=== PATIENT | female | born 1980 | race Caucasian/White ===

== ENCOUNTER 2021-07-08 08:47 | Emergency (ER) | payer OTHER, SELFPAY ==
--- NOTE | ~2021-07-08 | XR_ITS ---
EXAMINATION: XR chest 2V DATE: 07/08/2021 09:38 INDICATION: Chest pain with deep inspiration TECHNIQUE: PA and lateral views of the chest were obtained. COMPARISON: None FINDINGS: The lungs are clear with no focal airspace opacities, pulmonary edema, pleural effusion or pneumothor ax. The cardiomediastinal silhouette is normal. Mild thoracic dextrocurvature with mild spondylosis. Surgical clips in the left abdomen. IMPRESSION: 1. No acute cardiopulmonary disease. Reviewed, dictated and finalized at location B.
[2021-07-08 08:58] VITALS: BP 124/67; PULSE 62; RESP 16; TEMP 36; O2SAT 99
--- NOTE | 2021-07-08 09:22 | ED.URI ---
HPI - URI/Sore Throat General Chief Complaint: Upper Respiratory Infection Stated Complaint: Congestion Time Seen by Provider: 07/08/21 09:22 Source: patient Mode of arrival: ambulatory Limitations: no limitations History of Present Illness HPI Narrative: Alma Rocha is a 40 yo female who has a PMH of depression who comes to [facility] for complaints of ongoing respiratory symptoms that started on Monday. Initially she had a fever for 3 days and has had profound fatigue, states she slept all day Monday and Monday was hardly able to get up she was sent by her job to get a Covid test which was negative but she is continued to be fatigued and states it hurts for her to try and take a deep breath when she lays down she feels like her chest is being crushed Related Data Home Medications Medication Instructions Recorded Confirmed escitalopram oxalate 10 mg PO DAILY 07/08/21 07/08/21 Allergies Allergy/AdvReac Type Severity Reaction Status Date / Time No Known Allergies Allergy Verified 07/08/21 09:05 Review of Systems Review of Systems: CONSTITUTIONAL: Denies fever, chills, sweats. EYES: Denies visual changes, redness, discharge. ENT: Denies rhinorrhea, congestion, sore throat, otalgia. CARDIOVASCULAR: Denies chest pain, palpitations, edema. RESPIRATORY: Denies dyspnea, wheezing, cough, feels like cannot take deep breath GASTROINTESTINAL: Denies abdominal pain, nausea, vomiting, diarrhea. GENITOURINARY: Denies dysuria, hematuria, abnormal discharge SKIN: Denies rash or itching. NEUROLOGIC: Denies numbness, or focal weakness. PSYCHIATRIC: Denies anxiety or depression. PMFSH Past Medical History Medical History Depression Family History Family History (Updated 07/08/21 @ 09:32 by Izabella Kenyon CNP) Other No acute medical problems Social History Social History (Updated 07/08/21 @ 09:32 by Izabella Kenyon CNP) Smoking status: Never smoker Alcohol intake: current Comments At time of signature, I agree with nursing past medical, surgical, social and family history. There is no relevant family history pertinent to the presenting complaint. Exam Narrative: GENERAL: This is a well-nourished, well-developed patient, in moderate distress. HEAD: normocephalic, atraumatic. EYES: Sclera clear/white. Vision is grossly intact. EARS: External ears normal, auditory canals clear and without drainage, . Hearing grossly intact. NOSE: External nose normal without nasal discharge, nares without redness, no rhinorrhea. THROAT: Mucous membranes moist, NECK: Neck supple, non-tender CARDIOVASCULAR: Regular rate and rhythm without murmurs, gallops, or rubs. RESPIRATORY: Diminished to auscultation. Breath sounds equal bilaterally. No wheezes, rales, or rhonchi. GASTROINTESTINAL: Abdomen soft, non-tender, SKIN: warm, intact with no suspicious lesions or rash, good texture and turgor. NEURO: awake, alert, and oriented to person, place and time. There were no obvious focal neurologic abnormalities. Steady gait EXTREMITIES: Normal range of motion. BACK: Nontender without deformity Course Course Emergency Course: Patient comes to [facility] with complaints of fatigue and difficulty taking deep breath Rapid Covid done-negative Chest x-ray done-no acute cardiopulmonary disease, no focal airspace opacities, pulmonary edema, pleural effusion or pneumothorax Started on high-dose ibuprofen, albuterol inhaler, Zithromax Vital Signs Vital signs: Vital Signs Temperature 96.8 F L 07/08/21 08:58 Pulse Rate 62 07/08/21 08:58 Respiratory Rate 16 07/08/21 08:58 Blood Pressure 124/67 07/08/21 08:58 Pulse Oximetry 99 07/08/21 08:58 Temperature 96.8 F L 07/08/21 08:58 Pulse Rate 62 07/08/21 08:58 Respiratory Rate 16 07/08/21 08:58 Blood Pressure 124/67 07/08/21 08:58 Pulse Oximetry 99 07/08/21 08:58 MDM - URI/Sore Throat Diff
== END 2021-07-08 10:25 | disposition home or self-care (01) ==
PROVIDERS: Emergency Provider Nurse Practitioner
DX: J40 Bronchitis, not specified as acute or chronic (principal); J06.9 Acute upper respiratory infection, unspecified; Z20.822 Contact with and (suspected) exposure to COVID-19; F32.9 Major depressive disorder, single episode, unspecified
CPT/HCPCS: 71046; 87426; 99213; C9803; G0463

== ENCOUNTER 2024-12-11 14:51 | Emergency (ER) | payer OTHER, SELFPAY ==
--- NOTE | ~2024-12-11 | CT_ITS ---
EXAMINATION: CTA chest PE protocol DATE: 12/11/2024 23:20 INDICATION: dyspnea, elevated dimer TECHNIQUE: Computed tomography angiography (CTA) of the chest was performed with 100 mL Omnipaque-350 intravenous contrast timed to evaluate the pulmonary arteries. Coronal maximum intensity projection 3D-reconstructions were created by the technologist. The dose-length product (DLP) was 995.84 mGy-cm. Automated exposure control and iterative reconstruction technique were employed. COMPARISON: X-ray chest, same date. FINDINGS: Lung parenchyma and airways: Clear. Pleura: Unremarkable. Thoracic inlet, axillae and chest wall: Unremarkable. Thoracic aorta: No significant dilation. No dissection. Mediastinum: Normal. Heart and pericardium: Normal. Coronary artery calcifications: . Upper abdomen: Prior gastric surgery. Bones: No acute osseous finding. Pulmonary arteries: Study quality: Adequate. No pulmonary emboli detected. IMPRESSION: No CT evidence of acute pulmonary embolus. No acute process detected in the chest. Reviewed, dictated and finalized at location K. BIRD FARMER
--- NOTE | ~2024-12-11 | XR_ITS ---
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 RESULT: Lines, tubes, and devices: Surgical clips over the upper abdomen. Lungs and pleura: Clear. Cardiomediastinal silhouette: Stable. Other: No acute osseous or upper abdominal finding. IMPRESSION: No acute cardiopulmonary process. Reviewed, dictated and finalized at location K. PMENT WORKER
--- OUTSIDE RECORDS SUMMARY | 2024-12-11 15:39 | XMS_ITS | Clinical Summary ---
Author Organization [facility] Address [address] [place] [address] Care Team Providers Care Active Directory Specialist Name Role Phone Jamey Velazquez ENDO TECH Unavailable [phone] Monster Hdez Unavailable Unavailable Magdalena Fajardo MD Primary Care Provider Allergies No known active allergies Medications * This document contains information received from the source organization and may not represent a complete record from that organization. albuterol HFA (PROVENTIL HFA,VENTOLIN HFA,PROAIR HFA) 90 mcg/actuation inhaler Inhale 2 puffs every 6 (six) hours as needed for wheezing Active acetaminophen (TYLENOL) 500 mg tablet Take 1 tablet (500 mg total) by mouth every 6 (six) hours as needed for pain Active multivit-min/fe rrous fumarate (MULTI VITAMIN ORAL) Take by mouth daily Active traZODone (DESYREL) 50 mg tablet TAKE 1 TABLET BY MOUTH EVERY DAY AT BEDTIME NEEDED FOR SLEEP 30 tablet 2 Active cholecalciferol (VITAMIN D-3) 50,000 unit capsuleIndicati ons:Vitamin D deficiency TAKE 1 CAPSULE BY MOUTH ONE TIME PER WEEK 4 capsule 11 2 Active fluticasone propionate (FLONASE) 50 mcg/actuation nasal spray ADMINISTER 1 SPRAY INTO EACH NOSTRIL NEEDED FOR ALLERGIES 16 mL 1 3 Active escitalopram (LEXAPRO) 10 mg tablet Take 1 tablet (10 mg total) by mouth daily 30 tablet 11 4 Active buPROPion XL (WELLBUTRIN XL) 150 mg 24 hr tablet Take 1 tablet (150 mg total) by mouth every morning 30 tablet 5 4 Active propranoloL (INDERAL) 20 mg tablet Take 1 tablet (20 mg total) by mouth 2 (two) times a day 180 tablet 4 4 09/09/20 25 Active semaglutide (Wegovy) 0.25 mg/0.5 mL auto-injectorIn dications:Weigh t Loss Management for Obese Patient (BMI >= 30) Inject 0.5 mL (0.25 mg total) under the skin every 7 days 2 mL 4 Active fexofenadine (GOPAL) 180 mg tablet TAKE 1 TABLET BY MOUTH DAILY NEEDED (ALLERGIES). 90 tablet 3 4 Active Hospital, Clinic, or Other Facility Administered Medication Ordered Dose Route Frequency Start Date End Date Status levonorgestreL (MIRENA) 20 mcg/24 hours (7 yrs) 52 mg IUDIndications:Preg lucy Contraception intrauterine Continuous (implanted device) 05/18/2022 7 Active Active Problems Problem Noted Date Diagnosed Date Morbid obesity with BMI of 45.0-49.9, adult 10/13 Overview (10/30/2024): -struggling to establish with weight management -previously on wegovy for 3 months over a year ago -she continues to gain weight -she is not exercising as much as she knows she should, exercising 2 days a week if she is tejal -she is working on changing her diet plan, cutting out processed foods -tolerated wegovy previously -denies hx pancreatitis, thyroid cancer She does report wegovy is covered, start wegovy 0.25mg weekly, reviewed side effects, discussed regular physical activity and decreasing processed foods, sugar, carbs, increasing lean protein, fruit and vegetables. Severe depression (CMS/HCC) 01/15/2023 Assessment & Plan (02/24/2023 9:21 AM CDT): Improving. Will continue Wellbutrin and Lexapro as prescribed. Advised to continue appointments with therapist. Per patient, she will be starting a program with her therapist to help her transition back to work, which will take another 2 weeks. Assessment & Plan (02/09/2023 9:12 AM CDT): Uncontrolled. PHQ 9 score is 16. She denies SI/HI. She had recent evaluation by Psychiatrist and plans to f/u in 2 weeks. She will keep weekly appointments with her therapist. Assessment & Plan (01/26/2023 2:32 PM CDT): Improving, however she still has difficulty with focusing and concentrating on task. PHQ 9 score is 12. She denies SI/HI. She will continue therapy sessions and keep upcoming appointment with Psychiatry. Assessment & Plan (01/15/2023 9:51 PM CHANCERY CLERK): New worsening problem. PHQ 9 score is 21. She denies SI/HI. She is taking Lexapro as prescribed. She has low energy and does not want to get out of bed to do her usual activities. Symptoms started after her uncle . Will start Wellbutrin 150 mg daily. Continue Lexapro 10 mg daily. Referred to Psychiatry. Advised to start counseling via EAP. She will take 2 weeks of continuous leave off of work. Follow up in 2 weeks. Acute non-recurrent frontal sinusitis 03/16/2022 Assessment & Plan (03/16/2022 8:28 AM CDT): Will treat with Augmentin BID for 10 days. Advised to continue flonase and saline nasal rinses. Cough 03/16/2022 Assessment & Plan (03/16/2022 8:29 AM CDT): She has productive cough, sore throat, headache and low grade fever. Advised to do home COVID 19 test. She will take Robitussin as needed for cough. Follow up pending test results. She will stay home from work pending test results. Acute bilateral low back pain without sciatica 1 12/14/2020 Assessment & Plan (10/13/2021 11:00 AM CHANCERY CLERK): She c/o low back pain which seems to be worsening; this started after she was doing yard work 3 days ago. Advised to continue Tylenol every 4 to 6 hours in addition to heat. Will start muscle relaxant at night only prn for pain. If pain does not improve in 2 weeks, she will contact the office. Sore throat 01/06/2021 Assessment & Plan (01/06/2021 10:08 AM CHANCERY CLERK): She has sore throat, low grade fever, clear nasal drainage. She has been tested for COVID 19 and Flu; results are pending. Seems to be r/t viral illness. Will consider testing for strep pending negative COVID and Flu test. For now, advised to continue gargles, flonase, OTC allergy medicine and Tylenol. She will remain off work until she is fever free without the use of fever reducing medications for at least 24 hours. Contact the office if she develops colored drainage or symptoms worsen. Anxiety and depression 05/14/2020 Assessment & Plan (09/02/2022 8:44 AM CDT): 1. Chronic, stable 2. Restarting CPAP machine can help improve anxiety and depression 3. Continue current medications Assessment & Plan (09/09/2021 2:28 PM CDT): She is feeling more stressed and depressed over the last 3 weeks. Her symptoms have been triggered by increased responsibilities and work and stress. She will continue lexapro as prescribed. Start trazodone as needed at night for sleep. Advised to contact EAP to start counseling. Follow up in 1 month. Assessment & Plan (05/14/2020 4:43 PM CDT): Her PHQ 9 score is 8; she has mild depression. Her therapist suggested medication. Start Lexapro daily. Follow up in two weeks via video visit. Morbid obesity due to excess calories 08/20/2018 Overview (08/20/2018): Added automatically from request for surgery [id number] Assessment & Plan (08/25/2022 12:03 PM CDT): Followed by weight management. She has been gaining weight (possibly due to control). She has recently been started on Wegovy. Assessment & Plan (07/13/2021 10:50 AM CDT): She continues to lose weight. Nonintractable headache 08/06/2018 Assessment & Plan (08/06/2018 11:37 AM CDT): This has improved since sleeping with the CPAP. She can continue Excedrin or Ibuprofen as needed. Anxiety 08/06/2018 Assessment & Plan (02/09/2023 9:13 AM CDT): Currently on Lexapro. Keep upcoming appointment with Psychiatry and therapist. Assessment & Plan (08/06/2018 11:39 AM CDT): She is planning to talk with counselor via EAP program to discuss stress management and coping with work stress. If this does not help, will consider medication. Moderate obstructive sleep apnea 07/21/2018 Overview (08/28/2022): - HST (06/21/2018): AHI was 16.0 with O2 hemalatha of 84% - DME: Assessment & Plan (09/02/2022 8:44 AM CDT): 1. Chronic, poorly controlled 2. This is in the setting of her not using her machine 3. Provided her with instructions on changing the pressure and will have her follow-up in 1 month Assessment & Plan (08/25/2022 12:02 PM CDT): Chronic. Worsening. She has an old CPAP machine but she is not using this because it is blowing too much air. She feels tired during the day and her sister reports she snores loudly. Referred to sleep medicine. Assessment & Plan (12/06/2018 4:36 PM CHANCERY CLERK): Currently compliant with CPAP. Resolved Problems Problem Noted Date Diagnosed Date Resolved Date Viral illness 07/13/2021 01/15/2023 Assessment & Plan (07/13/2021 10:55 AM CDT): Her symptoms started about 9 days ago with fever, fatigue, and body aches. She had negative COVID 19 test x 2. She was treated at urgent care and diagnosed with bronchitis; per patient she had negative chest x ray. She was treated with antibiotics and her shortness of breath has improved; she continues to report fatigue and body aches; she has not had any worsening shortness of breath, cough or fever. Advised to stay home today and tomorrow; plan is to return to work pending no new worsening symptoms. Advised patient to rest, stay hydrated and continue Tylenol and Ibuprofen for body aches. BMI 60.0-69.9, adult 04/04/2018 018 Morbid obesity 04/04/2018 10/26/2018 Annual physical exam 03/14/2018 018 Assessment & Plan (03/14/2018 11:09 AM CDT): Exam is normal. Will check routine labs. Advises to start eating 3 meals per day. Increase fruit and vegetable intake to 5 to 6 servings per day. Continue to exercises 30 minutes per day 5 days per week. Morbid obesity with BMI of 50.0-59.9, adult 03/14/2018 12/17/2018 Assessment & Plan (12/06/2018 4:36 PM CHANCERY CLERK): Obesity is improving. Discussed the patient's BMI. The BMI is above average; BMI management plan is completed. General weight loss/lifestyle modification strategies discussed (elicit support from others; identify saboteurs; non-food rewards, etc). Informal exercise measures discussed, e.g. taking stairs instead of elevator. Regular aerobic exercise program discussed. Assessment & Plan (08/30/2018 10:05 PM CDT): Obesity is improving with lifestyle modifications. Discussed the patient's BMI. The BMI is above average; BMI management plan is completed. General weight loss/lifestyle modification strategies discussed (elicit support from others; identify saboteurs; non-food rewards, etc). Diet interventions: diet diary indefinitely. Informal exercise measures discussed, e.g. taking stairs instead of elevator. Regular aerobic exercise program discussed. Assessment & Plan (08/06/2018 11:37 AM CDT): Obesity is stable. Discussed the patient's BMI. The BMI is above average; BMI management plan is completed. General weight loss/lifestyle modification strategies discussed (elicit support from others; identify saboteurs; non-food rewards, etc). Informal exercise measures discussed, e.g. taking stairs instead of elevator. Reminded to continue to track calories. Continue to exercise regularly. Advised to try and decrease stress and avoid over indulging. Avoid alcohol. Assessment & Plan (07/05/2018 4:01 PM CDT): Obesity is improving with lifestyle modifications. Discussed the patient's BMI. The BMI is above average; BMI management plan is completed. General weight loss/lifestyle modification strategies discussed (elicit support from others; identify saboteurs; non-food rewards, etc). Informal exercise measures discussed, e.g. taking stairs instead of elevator. Regular aerobic exercise program discussed. She has lost 6 pounds since the last visit. Advised to increase physical activity to 30 minutes per day 5 days per week. Continue low calorie diet. Assessment & Plan (06/05/2018 4:08 PM CDT): Obesity is improving with lifestyle modifications. Discussed the patient's BMI. The BMI is above average; BMI management plan is completed. General weight loss/lifestyle modification strategies discussed (elicit support from others; identify saboteurs; non-food rewards, etc). She has lost 5 pounds since the last visit. Advises to increase physical activity to 3 to 4 times per week for at least 30 minutes to 1 hour. Continue to track calories and remain under 2,000 calories per day. Assessment & Plan (05/10/2018 1:28 PM CDT): Obesity is improving with lifestyle modifications. Discussed the patient's BMI. The BMI is above average; BMI management plan is completed. General weight loss/lifestyle modification strategies discussed (elicit support from others; identify saboteurs; non-food rewards, etc). Informal exercise measures discussed, e.g. taking stairs instead of elevator. Regular aerobic exercise program discussed. She is losing weight with decreased caloric intake but she is not exercising. Advised to start exercising 30 minutes per day 5 days per week. Assessment & Plan (03/14/2018 11:11 AM CDT): Obesity is improving with lifestyle modifications. Discussed the patient's BMI. The BMI is above average; BMI management plan is completed. General weight loss/lifestyle modification strategies discussed (elicit support from others; identify saboteurs; non-food rewards, etc). Diet interventions: low calorie (1000 kCal/d) deficit diet. Informal exercise measures discussed, e.g. taking stairs instead of elevator. Regular aerobic exercise program discussed. She is being followed by Dr. Alonso's office; she is starting a medically supervised weight loss program. She has plans to see a molder meat and is on low calorie diet. Snoring 03/14/2018 10/26/2018 Assessment & Plan (03/14/2018 11:12 AM CDT): She is obese, she snores, she feels tired during the day at times and she has large neck circumference. She is high risk for RAGHAVENDRA according to STOP-BANG score of 4. Referral placed to sleep medicine. Human papilloma virus (HPV) infection 03/23/2016 04/04/2019 Low grade squamous intraepit helial lesion (LGSIL) on cervicovaginal cytologic smear 03/23/2016 04/04/2019 Encounters * This document contains information received from the source organization and may not represent a complete record from that organization. Date Type Department Care Team Description 11/11/2024 10:45 AM CHANCERY CLERK Clinical Support [facility] Care at [address] [id number] Encounter for screening for COVID-19 (Primary Dx) 11/11/2024 10:44 AM CHANCERY CLERK - 11/11/2024 11:59 PM CHANCERY CLERK Hospital Encounter [address] [address] Respiratory illness; Fever, unspecified fever cause; Cough, unspecified type; Body aches; Loss of smell; Nonintractable headache, unspecified chronicity pattern, unspecified headache type; Sore throat; Nasal congestion; Runny nose; Chills; Fatigue, unspecified type Discharge Disposition: Discharge to home or self care 10/28/2024 2:20 PM CHANCERY CLERK Office Visit [facility] [address] [place] [address] [place] [address] [place] [phone] Aniyah Rivera NP Morbid obesity with BMI of 45.0-49.9, adult (HCC) (Primary Dx) 10/28/2024 Telephone [facility] [address] [place] [address] [place] [phone] Magdalena Fajardo MD Prior Auth 09/10/[address] [place] [phone] Wendy Ramsey Encounter for vaccination (Primary Dx) 09/10/2024 Immunization [facility] Occupational [address] [place] [phone] Wendy Ramsey from Last 3 Months Immunizations Name Administration Dates Next Due COVID-19 mRNA ([employer]) 0.3 m L (30 mcg) vaccine (12 years and up) 09/10/2024 DTP 04/30/1986, 2,1981,09/24 Influenza, Quadrivalent, Spl it, Preservative Free, Intradermal 08/22/2016 Influenza, Trivalent, Cell Culture-based MDCK, Preservative Free, Antibiotic Free, Intramuscular 09/10/2024 Influenza, Trivalent, IM (MDV) 07/05/2014 Influenza, Unspecified 08/17/2022,2020,08/13/2020,07/31 MMR 06/16/1992,01/20/1983 OPV 04/30/1986, 2,1981,09/24 Pfizer SARS-CoV-2 Monovalent Vaccination (12+ Yrs) PURPLE 08/27/2022,09/17/2021,12/04/2020,11/17 Pfizer Sars-Cov-2 Bivalent V accination (12+ YRS) 09/13/2023,08/27/2022 Td, adsorbed 06/13/1996 Tdap 08/22/2016 Surgical History Surgery Date Site/Laterality Comments DILATION AND CURETTAGE OF UTERUS FOOT FRACTURE SURGERY Right COLPOSCOPY 03/23/2016 ROSA 1 BARIATRIC SURGERY 10/13/2018 - 11/12/2018 Qamar-en-Y FRACTURE SURGERY 08-25-2013 Medical History Medical History Date Comments RAD (reactive airway disease) Abnormal Pap smear of cervix 02/17/2016 LSI L, pos HR HPV Fibroid Anemia 1989 pt reported ov Anxiety Depression Migraines Seizures (HCC) Sleep apnea Family History Medical History Relation Name Comments Prostate cancer Father Terrell Render Stroke Maternal Grandmother Vanda Vulcan Breast cancer Paternal Grandmother Italeine Render Diabetes type II Sister Relation Name Status Comments Father Terrell Render Maternal Grandmother Vanda Vulcan Other Paternal Grandmother Italeine Render Sister Social History Tobacco Use Types Packs/Day Years Used Date Smoking Tobacco: Never Smokeless Tobacco: Never Tobacco Cessation:Counseling Given: Not Answered Alcohol Use Standard Drinks/Week Comments Yes 0 (1 standard drink = 0.6 oz pur e alcohol) AUDIT-C Answer Date Recorded Q1: How often do you have a drink containing alcohol? Never 11/09/2023 Q2: How many drinks containi ng alcohol do you have on a typical day when you are drinking? Patient does not drink Q3: How often do you have si x or more drinks on one occasion? 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 Not on file Not on file Not on file Obstetrics History Para Term AB IAB SAB Ectopic Multiple Livin g Live Births 0 0 0 0 0 0 0 0 0 0 0 Last Filed Vital Signs Vital Sign Reading Time Taken Comments Blood Pressure 119/81 10/28/2024 2:14 PM CHANCERY CLERK Pulse 64 10/28/2024 2:14 PM CHANCERY CLERK Temperature 36.4 ??C (97.5 ??F) 10/28/2024 2:14 PM CS T Respiratory Rate 16 10/28/2018 8:10 AM CHANCERY CLERK Oxygen Saturation 99% 10/28/2024 2:14 PM CHANCERY CLERK Inhaled Oxygen Concentration - - Weight 147.4 kg (325 lb) 10/28/2024 2:14 PM CHANCERY CLERK Height 172.7 cm (5' 8 ) 10/28/2024 2:14 PM CHANCERY CLERK Body Mass Index 49.42 10/28/2024 2:14 PM CHANCERY CLERK Plan of Treatment Health Maintenance Due Date Last Done Comments Hepatitis C Screening 1981 Hepatitis B Screening 1999 Cervical Cancer Screening 03/19/20222020, 02/08/2021, 04/04/2019, Additional history exists Regular Well Visit/Exam 18-64 06/28/2023 06/28/2022, 02/08/2021, 04/04/2019, Additional history exists Depression Screening 02/24/2024 02/23/2023, 02/09/2023, 02/09/2023, Additional history exists Breast Cancer Screening-Mammogram 11/16/2024 11/16/2023, 08/16/2021 DTaP/Tdap/Td Vaccine (6 - Td or Tdap) 08/22/2026 08/22/2016, 06/13/1996, 04/30/1986, Additional history exists Covid-19 Vaccine Completed 09/10/2024, 11/2022, 08/27/2022, Additional history exists Influenza Vaccine Completed 09/10/2024, , 08/17/2022, Additional history exists HPV Vaccines Aged Out No longer eligi ble based on patient's age to complete this topic Pneumococcal vaccine <65 Aged Out No longer eligible based on patient's age to complete this topic Varicella Vaccines Discontinued Procedures Procedure Name Priority Date/Time Associated Diagnosis Comments INFLUENZA A/B, RSV, AND COVID-19 PCR Routine 11/11/2024 10:44 AM CHANCERY CLERK Respiratory illness Fever, unspecified fever cause Cough, unspecified type Body aches Loss of smell Nonintractable headache, unspecified chronicity pattern, unspecified headache type Sore throat Nasal congestion Runny nose Chills Fatigue, unspecified type SCREENING MAMMOGRAM BILATERAL W RONAK Schedule Routine, Read Routine (OP Routine) 11/16/2023 7:14 AM CHANCERY CLERK Screening mammogram, encounter for PAP AND HIGH RISK HPV, REFLEX TO GENOTYPING Routine 03/19/2021 8:27 AM CDT Unsatisfactory cytologic smear of cervix from Last 3 Months or Most Recently Relevant to Health Maintenance Results * Influenza A/B, RSV, and COVID-19 PCR Nasopharyngeal (11/11/2024 10:44 AM CHANCERY CLERK) COVID-19 RNA Negative Negative Influenza A RNA Negative Negative [facility] Influenza B RNA Negative Negative [facility] RSV RNA Negative Negative [facility] Comment: Interpretive data: Testing performed by [facility]. This test is performed using the [employer] Xpert Xpress CoV-2/Flu/RSV plus assay. This is a multiplex, real-time reverse transcriptase PCR assay intended for the qualitative detection of nucleic acid from SARS-CoV-2, influenza A, influenza B, and respiratory syncytial virus. This assay has been cleared by the [place] Food and Drug administration. The performance characteristics have been verified by the [facility]. ??Results must be considered in the clinical context, and a negative result does not rule out infection. 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 Fever, cough, shortness of breath)?->Yes Reason for testing?->Symptomatic Is the Patient experiencing symptoms consistent with COVID?->Yes Grant Mendes MD LAB MICROBIOLOGY - GE NERAL ORDERABLES Final Result [facility] [id number] [facility] Department [place] [address] * Screening Mammogram Bilateral W Ronak (11/16/2023 7:14 AM CHANCERY CLERK) Anatomical Region Laterality Modality Breast Bilateral Mammography Narrative 11/17/2023 12:23 PM CHANCERY CLERK Mammogram Technique: Bilateral Digital Breast Tomosynthesis, Bilateral C-view 2D Screening mammogram. ??Views obtained: ??bilateral craniocaudal and bilateral mediolateral oblique. ??Computer Aided Detection was performed. Mammogram Findings: The present examination has been compared to a prior imaging study performed at [facility] on 08/16/2021. The breasts are heterogeneously dense, which may obscure small masses. There is no suspicious abnormality in either breast. Impression: There is no mammographic evidence of malignancy. Annual screening mammography is recommended.If supplemental screening is desired, breast MRI would be recommended in this patient with heterogeneously dense breasts. OVERALL FINAL ASSESSMENT: BI-RADS CATEGORY 1: ??Negative. Procedure Note Faye Roa MD - 11/17/2023 Mammogram Technique: Bilateral Digital Breast Tomosynthesis, Bilateral C-view 2D Screening mammogram. Views obtained: bilateral craniocaudal and bilateral mediolateral oblique. Computer Aided Detection was performed. Mammogram Findings: The present examination has been compared to a prior imaging study performed at [facility] on 08/16/2021. The breasts are heterogeneously dense, which may obscure small masses. There is no suspicious abnormality in either breast. Impression: There is no mammographic evidence of malignancy. Annual screening mammography is recommended.If supplemental screening is desired, breast MRI would be recommended in this patient with heterogeneously dense breasts. OVERALL FINAL ASSESSMENT: BI-RADS CATEGORY 1: Negative. us Self Screening Mammogram IMG MAMMO PROCEDURES Fi nal Result * Pap and High Risk HPV, reflex to Genotyping (03/19/2021 8:27 AM CDT) Swab (Pap test) 03/19/2021 8 :27 AM CDT 03/19/2021 11:20 AM CDT Narrative PATHOLOGY [facility] - 04/01/2021 3:57 PM CDT EPIC results best viewed via link to PDF [facility] [place] [address] [place] [address] CYTOPATHOLOGY REPORT FINAL Patient Name: ??RENDER, ALMA E. Gender: ??F : ??1980 (Age: 40) Address: ??[address] [place] [address] ??[address] Hospital #: ??[id number] Service: ??Laboratory Location: ??[facility] Patient Type: ??[facility] Ref Lab Taken: ??03/19/2021 Received: ??03/19/2021 Accessioned: ??03/19/2021 Reported: ??04/01/2021 Physician(s): ??Jennifer Kerr M.D. ?? FINAL INTERPRETATION SOURCE OF SPECIMEN: ? Liquid based Thin Prep pap with HPV STATEMENT OF ADEQUACY: ?- Satisfactory for evaluation ?- Endocervical cells/transformation zone sample present GENERAL CATEGORY: ?- Negative for squamous intraepithelial lesion or malignancy ?? Comments HPV Result: ??NEGATIVE for high risk types of Human Papilloma Virus (HPV) RNA This probe detects the presence of HPV types: 16, 18, 31, 33, 35, 39, 45, 51, 52, 56, 58, 59, 66 and 68. ??This HPV test was performed at [facility] in [place], [place] utilizing the Gen-Probe Aptima assay. 04/01/2021 15:57 Casandra Espinoza M.S.,CT(ASCP) Report Electronically Reviewed and Signed Out By Casandra Espinoza M.S.,CT(ASCP) 04/01/2021 15:57:42 Cervicovaginal Cytology (Pap Test) Disclaimer: The Pap test is a screening test used to detect cervical cancer and its precursors; it is not a diagnostic procedure. False negative and false positive results do occur. Pap test results should be interpreted in the context of pertinent clinical information and biopsy results as indicated. Gross Description A. ??Liquid based Thin Prep pap with HPV: ??Cervical/vaginal - Screening ThinPrep ?? Clinical Diagnosis and History Last Menstrual Period: 01/16/21 Contraceptive History: IUD The patient is a 40 year old woman with recent pap test 02/08/21 unsatisfactory. The HPV test was performed by [facility], [address] [place] [address]. Report Images and scanned documents, if included only viewable in PDF version The performance characteristics of some immunohistochemical stains, in-situ hybridization and fluorescence in-situ hybridization tests and immunophenotyping by flow cytometry cited in this report (if any) were determined by the Surgical Pathology Department at [facility] as part of an ongoing quality analyst program and in compliance with federally mandated regulations drawn from the Clinical Laboratory Improvement Act of 1988 (CLIA '88). ??Some of these tests rely on the use of analyte specific reagents and are subject to specific labeling requirements by the US Food and Drug Administration. ??Such diagnostic tests may only be performed in a facility that is certified by the Department of Health and Human Services as a high complexity laboratory under CLIA '88. ??The FDA has determined that such clearance or approval is not necessary. ??This test is used for clinical purposes. ??It should not be regarded as investigational or for research. ??Nevertheless, federal rules concerning the medical use of analyte specific reagents require that the following disclaimer be attached to the report: This test was developed and its performance characteristics determined by the Surgical Pathology Department of [facility]. ??It has not been cleared or approved by the U. S. Food and Drug Administration. Jennifer Kerr NP LAB CYTOLOGY ORDERABLES Fi nal Result PATHOLOGY [facility] 3rd Floor [place], [place] [phone] from Last 3 Months or Most Recently Relevant to Health Maintenance Insurance [facility] [address] EMPLOYEES [employer] [address] EMPLOYEES [employer] Advance Directives For more information, please contact: [phone] * Full Code (Latest Code Status on File) Date Activated Date Inactivated Comments 10/26/2018 3:51 PM 10/28/2018 6:43 PM Care Teams Active Directory Specialist Relationship Specialty Start Date End Date Magdalena Fajardo MD [address] [address] PCP - General Internal Medicine 11/09/23 Jamey Velazquez NP [address] [facility] [phone] [place] [address] Nurse Practitioner Surgery 04/25/18 Monster Hdez 04/25/18
--- OUTSIDE RECORDS SUMMARY | 2024-12-11 15:39 | XMS_ITS | Referral Summary ---
Author Organization [facility] Address [address] [place] [address] Care Team Providers Care Radiology Equipment Servicer Name Role Phone Jamey Velazquez LAW OFFICE MANAGER Unavailable [phone] Monster Hdez Unavailable Unavailable Magdalena Fajardo MD Primary Care Provider Encounters * This document contains information received from the source organization and may not represent a complete record from that organization. Date Type Department Care Team Description 11/11/2024 10:44 AM HIM ASSISTANT - 11/11/2024 11:59 PM HIM ASSISTANT Hospital Encounter [address] [address] Respiratory illness; Fever, unspecified fever cause; Cough, unspecified type; Body aches; Loss of smell; Nonintractable headache, unspecified chronicity pattern, unspecified headache type; Sore throat; Nasal congestion; Runny nose; Chills; Fatigue, unspecified type Discharge Disposition: Discharge to home or self care 11/11/2024 10:45 AM HIM ASSISTANT Clinical Support [facility] Medical [facility] Care at [address] [phone] Encounter for screening for COVID-19 (Primary Dx) 10/28/2024 Telephone [facility] [address] [place] [address] 12th [place] [address] [place] [address] Magdalena Fajardo MD Prior Auth 10/28/2024 2:20 PM HIM ASSISTANT Office Visit [facility] [address] [place] [address] [place] [address] [place] [phone] Aniyah Rivera NP Morbid obesity with BMI of 45.0-49.9, adult (HCC) (Primary Dx) 09/10/2024 Immunization [place] [id number] [facility] 5th [address] [place] [phone] Wendy Ramsey Encounter for vaccination (Primary Dx) 09/10/[address] 5th [address] [place] [phone] Wendy Ramsey from Last 3 Months Allergies No known active allergies Medications * [...] Psychiatry. Assessment & Plan (01/15/2023 9:51 PM HIM ASSISTANT): New worsening problem. PHQ 9 score is [...] 12/14/2020 Assessment & Plan (10/13/2021 11:00 AM HIM ASSISTANT): She c/o low back pain which seems [...] 01/06/2021 Assessment & Plan (01/06/2021 10:08 AM HIM ASSISTANT): She has sore throat, low grade fever, [...] (08/20/2018): Added automatically from request for surgery [id number] Assessment & Plan (08/25/2022 12:03 PM CDT): [...] medicine. Assessment & Plan (12/06/2018 4:36 PM HIM ASSISTANT): Currently compliant with CPAP. Resolved Problems Problem [...] 12/17/2018 Assessment & Plan (12/06/2018 4:36 PM HIM ASSISTANT): Obesity is improving. Discussed the patient's BMI. [...] program. She has plans to see a brim setter and is on low calorie diet. Snoring [...] (LGSIL) on cervicovaginal cytologic smear 03/23/2016 04/04/2019 Immunizations Name Administration Dates Next Due COVID-19 mRNA (Coupons Near Me) 0.3 m L (30 mcg) vaccine (12 years and up) 09/10/2024 DTP 04/30/1986, 2,1981,09/24 Influenza, Quadrivalent, Spl it, Preservative Free, Intradermal 08/22/2016 Influenza, Trivalent, Cell Culture-based MDCK, Preservative Free, Antibiotic Free, Intramuscular 09/10/2024 Influenza, Trivalent, IM (MDV) 07/05/2014 Influenza, Unspecified 08/17/2022,2020,08/13/2020,07/31 MMR 06/16/1992,01/20/1983 OPV 04/30/1986, 2,1981,09/24 Vaprema SARS-CoV-2 Monovalent Vaccination (12+ Yrs) PURPLE 08/27/2022,09/17/2021,12/04/2020,11/17 Pfizer Sars-Cov-2 Bivalent V accination (12+ YRS) 09/13/2023,08/27/2022 Td, adsorbed 06/13/1996 Tdap 08/22/2016 Social History Tobacco Use Types Packs/Day Years [...] on file Legal Sex Female 8:26 AM HIM ASSISTANT Gender Identity Not on file Sexual Orientation Straight 05/13/2020 5: 59 AM CDT Occupation Industry Job Start Date Job End Date [employer] Not on file Not on file Not on file Last Filed Vital Signs Vital Sign Reading Time Taken Comments Blood Pressure 119/81 10/28/2024 2:14 PM HIM ASSISTANT Pulse 64 10/28/2024 2:14 PM HIM ASSISTANT Temperature 36.4 ??C (97.5 ??F) 10/28/2024 2:14 PM CS T Respiratory Rate 16 10/28/2018 8:10 AM HIM ASSISTANT Oxygen Saturation 99% 10/28/2024 2:14 PM HIM ASSISTANT Inhaled Oxygen Concentration - - Weight 147.4 kg (325 lb) 10/28/2024 2:14 PM HIM ASSISTANT Height 172.7 cm (5' 8 ) 10/28/2024 2:14 PM HIM ASSISTANT Body Mass Index 49.42 10/28/2024 2:14 PM HIM ASSISTANT Plan of Treatment Not on file Procedures Procedure Name Priority Date/Time Associated Diagnosis Comments INFLUENZA A/B, RSV, AND COVID-19 PCR Routine 11/11/2024 10:44 AM HIM ASSISTANT Respiratory illness Fever, unspecified fever cause Cough, unspecified type Body aches Loss of smell Nonintractable headache, unspecified chronicity pattern, unspecified headache type Sore throat Nasal congestion Runny nose Chills Fatigue, unspecified type SCREENING MAMMOGRAM BILATERAL W RONAK Schedule Routine, Read Routine (OP Routine) 11/16/2023 7:14 AM HIM ASSISTANT Screening mammogram, encounter for PAP AND HIGH RISK HPV, REFLEX TO GENOTYPING Routine 03/19/2021 8:27 AM CDT Unsatisfactory cytologic smear of cervix from Last 3 Months or Most Recently Relevant to Health Maintenance Results * Influenza A/B, RSV, and COVID-19 PCR Nasopharyngeal (11/11/2024 10:44 AM HIM ASSISTANT) Pathologist [facility] COVID-19 RNA Negative Negative Influenza A RNA Negative Negative [facility] Influenza B RNA Negative Negative [facility] RSV RNA Negative Negative [facility] Comment: Interpretive data: Testing performed by [facility]. This test is performed using the Mixamo Xpert Xpress CoV-2/Flu/RSV plus assay. This is a multiplex, real-time reverse transcriptase PCR assay intended for the qualitative detection of nucleic acid from SARS-CoV-2, influenza A, influenza B, and respiratory syncytial virus. This assay has been cleared by the [place] Food and Drug administration. The performance characteristics have been verified by the [facility]. ??Results must be considered in the clinical context, and a negative result does not rule out infection. 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 Fever, cough, shortness of breath)?->Yes Reason for testing?->Symptomatic Is the Patient experiencing symptoms consistent with COVID?->Yes Grant Mendes MD LAB MICROBIOLOGY - [facility] ORDERABLES Final Result SRINATH [id number] [facility] Department [place] [address] * Screening Mammogram Bilateral W [place] (11/16/2023 7:14 AM HIM ASSISTANT) Anatomical Region Laterality Modality Breast Bilateral Mammography Narrative 11/17/2023 12:23 PM HIM ASSISTANT Mammogram Technique: Bilateral Digital Breast Tomosynthesis, Bilateral C-view 2D Screening mammogram. ??Views obtained: ??bilateral craniocaudal and bilateral mediolateral oblique. ??Computer Aided Detection was performed. Mammogram Findings: The present examination has been compared to a prior imaging study performed at [facility] on 08/16/2021. The breasts are heterogeneously dense, [...] to a prior imaging study performed at [facility] on 08/16/2021. The breasts are heterogeneously dense, [...] CDT 03/19/2021 11:20 AM CDT Narrative PATHOLOGY [facility] - 04/01/2021 3:57 PM CDT EPIC results best viewed via link to PDF [facility] Loraine Pollack [facility] [place] [address] CYTOPATHOLOGY REPORT FINAL Patient Name: ??RENDER, ALMA E. Gender: ??F : ??1980 (Age: 40) Address: ??[address] [place] [address] ??[address] Hospital #: ??[id number] Service: ??Laboratory Location: ??[facility] Patient Type: ??[facility] Ref Lab Taken: ??03/19/2021 Received: ??03/19/2021 Accessioned: [...] 68. ??This HPV test was performed at [facility] in [place], [place] utilizing the Gen-Probe Aptima assay. /04/01/2021 15:57 Casandra Espinoza M.S.,CT(ASCP) Report Electronically Reviewed [...] unsatisfactory. The HPV test was performed by [facility], [address] [place] [address]. Report Images and scanned documents, if included only viewable in PDF version The performance characteristics of some immunohistochemical stains, in-situ hybridization and fluorescence in-situ hybridization tests and immunophenotyping by flow cytometry cited in this report (if any) were determined by the Surgical Pathology Department at [facility] as part of an ongoing vice president quality improvement program and in compliance with federally mandated [...] determined by the Surgical Pathology Department of [facility]. ??It has not been cleared or approved by the U. S. Food and Drug Administration. Jennifer Kerr LAW OFFICE MANAGER LAB CYTOLOGY ORDERABLES Fi nal Result PATHOLOGY [facility] 3rd Floor [place], [place] [phone] from Last 3 Months or Most Recently Relevant to Health Maintenance Insurance [facility] [place] [id number] [employer] EMPLOYEES [facility] [employer] EM[employer] Advance Directives For more information, please contact: [phone] * Full Code (Latest Code Status on File) Date Activated Date Inactivated Comments 10/26/2018 3:51 PM 10/28/2018 6:43 PM Care Teams Radiology Equipment Servicer Relationship Specialty Start Date End Date Magdalena Fajardo MD [address] [facility] [address], [place] [address] PCP - General Internal Medicine 11/09/23 Jamey Velazquez NP [address] [facility] [phone] [place] [address] Nurse Practitioner Surgery 04/25/18 Monster Hdez 04/25/18
--- OUTSIDE RECORDS SUMMARY | 2024-12-11 15:39 | XMS_ITS | Encounter Summary ---
Author Organization [facility] Address [address] [place] [address] Phone Care Team Providers Care Mask Designer Name Role Phone Suzanne Calzada MD Primary Care Provider [phone] Jamey Velazquez STAFF NURSE Unavailable [phone] Jo Gardner DPT Unavailable [phone] Monster Hdez Unavailable Unavailable Catina Albarado NP Primary Care Provider [phone] Magdalena Fajardo MD Primary Care Provider Encounter Details Date Type Department Care Team (Late st Contact Info) Description 03/15/2018 Orders Only [facility] ProviderJeff MD [address] [place] [address] Social History Tobacco Use Types Packs/Day Years Used Date Smoking Tobacco: Never Smokeless Tobacco: Never Alcohol Use Standard Drinks/Week Comments Yes 0 (1 standard drink = 0.6 oz pur e alcohol) Comments No Sex and Gender Information Value Date Recorded Sex Assigned at Not on file Legal Sex Female 8:26 AM AIRLINE RESERVATIONIST Gender Identity Not on file Sexual Orientation Straight 05/13/2020 5: 59 AM CDT documented as of this encounter Plan of Treatment Not on file documented as of this encounter Procedures Procedure Name Priority Date/Time Associated Diagnosis Comments DISCHARGE LABORATORY CUMULATIVE REPORT 03/15/2018 12:00 AM CDT documented in this encounter Results * DISCHARGE LABORATORY CUMULATIVE REPORT (03/15/2018 12:00 AM CDT) Narrative 03/15/2018 12:00 AM CDT Ordered by an unspecified provider. us Historical Provider LAB BLOOD ORDERABLES Roxanna l Result documented in this encounter Visit Diagnoses Not on filedocumented in this encounter Additional Health Concerns Infection Onset Date Last Indicated Resolved Time Exposure, COVID-19 Comment:Added automatically based on COVID19 lab answers indicating exposure risk 11/06/2020 11/06/2020 11/21/2020 3:[address] COVID: Suspected 01/05/2021 01/05/2021 01/06/2021 5:43 AM AIRLINE RESERVATIONIST COVID: Suspected 07/05/2021 07/06/2021 07/06/2021 5:21 PM CDT COVID: Suspected 10/25/2021 10/25/2021 10/25/2021 11:07 PM AIRLINE RESERVATIONIST COVID: Suspected 11/26/2021 11/27/2021 11/27/2021 10:11 PM AIRLINE RESERVATIONIST COVID: Suspected 11/11/2024 11/11/2024 11/11/2024 7:51 PM AIRLINE RESERVATIONIST documented as of this encounter Care Teams Mask Designer Relationship Specialty Start Date End Date Suzanne Calzada MD [facility] [address] [place] [address] PCP - General 02/10/17 06/08/23 Catina Albarado STAFF NURSE PCP - General Internal Medicine 06/09/23 11/08/23 Magdalena Fajardo MD [address] [facility] [address] [place] [address] PCP - General Internal Medicine 11/09/23 Jamey Velazquez NP [address] [facility] [phone] [place] [address] Nurse Practitioner Surgery 04/25/18 Jo Gardner DPT [address] [place] [address] Physical Therapist Physical Therapy 04/25/18 10/28/18 Monster Hdez 04/25/18 documented as of this encounter
[2024-12-11 15:40] VITALS: BP 150/88; PULSE 71; RESP 20; TEMP 36.2; O2SAT 100
--- NOTE | 2024-12-11 15:43 | ECG_ITS ---
Test Date: 2024-12-11 18:53:12 Measurements Intervals [place] Rate: 63 P: 19 MT: 135 QRS: -1 QRSD: 88 T: 5 QT: 391 QTc: 402 Interpretive Statements SINUS RHYTHM MINIMAL VOLTAGE CRITERIA FOR LVH, CONSIDER NORMAL VARIANT [MEETS CRITERIA IN ONE OF: R(aVL), S(V1), R(V5), R(V5/V6)+S(V1)] No previous ECG available for comparison Electronically Signed On 12-12-2024 11:33:12 BOBBIN INSPECTOR by Lg Burleson M.D.
--- NOTE | 2024-12-11 15:43 | ED.GENADULT ---
HPI - General Adult General Chief complaint: Weakness <SALOMON Doyle Last Filed: 12/11/24 15:44> Stated complaint: hurts to breath <Meaghan Garcia PA-C - Last Filed: 12/11/24 15:44> Time Seen by Provider: 12/11/24 20:49 <Meaghan Garcia PA-C - Last Filed: 12/11/24 15:44> Focused HPI: 44-year-old female presents emergency department for dizziness. Patient states she has been feeling dizzy since Monday. States when she walks for long periods of time she feels like the room is spinning and like she was going to pass out. She denies syncope. States she recently finished 2 courses of antibiotics, most recently doxycycline on Monday and 2 courses of prednisone for sinus infection. States she feels a sinus infection is improving but since then the dizziness was started. She reports diarrhea but attributes this to recent doxycycline. Denies abdominal pain. States she has some chest tightness when she takes a deep breath. Denies melena or hematochezia. GENERAL: Well-appearing, well-nourished, and in no acute distress. HEAD: Normocephalic, atraumatic. CHEST: Clear to auscultation. ?No respiratory distress. HEART: Regular rate and rhythm.? NEURO: ?Alert and oriented x3. Patient screened in triage and initial orders placed.? ?Additional care and disposition to be based upon?diagnostic testing and treatment. <Meaghan Garcia PA-C - Last Filed: 12/11/24 15:44> Related Data Home medications: Home Medications ?Medication ?Instructions ?Recorded ?Confirmed ?Last Taken ?Type escitalopram oxalate 10 mg tablet 10 mg PO DAILY 07/08/21 07/08/21 07/08/21 History <SALOMON Doyle Last Filed: 12/11/24 15:44> Allergies/adverse reactions: Allergies Allergy/AdvReac Type Severity Reaction Status Date / Time No Known Allergies Allergy Verified 07/08/21 09:05 <SALOMON Doyle Last Filed: 12/11/24 15:44> PMFSH Past Medical History Medical History: Medical History Depression <Meaghan Garcia PA-C - Last Filed: 12/11/24 15:44> Family History Family History: Family History (Updated 07/08/21 @ 09:32 by Izabella Kenyon, PLASTERER ROUGH) Other No acute medical problems <SALOMON Doyle Last Filed: 12/11/24 15:44> Social History Social History: Social History (Updated 07/08/21 @ 09:32 by Izabella Kenyon, PLASTERER ROUGH) Smoking status: Never smoker Alcohol intake: current <SALOMON Doyle Last Filed: 12/11/24 15:44> Course Vital Signs Vital signs: Vital Signs Temperature 97.2 F L 12/11/24 15:40 Pulse Rate 71 12/11/24 15:40 Respiratory Rate 20 12/11/24 15:40 Blood Pressure 150/88 H 12/11/24 15:40 Pulse Oximetry 100 12/11/24 15:40 Temperature 97.2 F L 12/11/24 15:40 Pulse Rate 77 12/11/24 23:57 Respiratory Rate 18 12/11/24 23:57 Blood Pressure 122/83 12/11/24 23:57 Pulse Oximetry 100 12/11/24 23:57 <Meaghan Garcia PA-C - Last Filed: 12/11/24 15:44> Vital Signs Temperature 97.2 F L 12/11/24 15:40 Pulse Rate 71 12/11/24 15:40 Respiratory Rate 20 12/11/24 15:40 Blood Pressure 150/88 H 12/11/24 15:40 Pulse Oximetry 100 12/11/24 15:40 Temperature 97.2 F L 12/11/24 15:40 Pulse Rate 77 12/11/24 23:57 Respiratory Rate 18 12/11/24 23:57 Blood Pressure 122/83 12/11/24 23:57 Pulse Oximetry 100 12/11/24 23:57 <SALOMON Villa Last Filed: 12/12/24 02:24> Medical Decision Making MDM Narrative Medical decision making narrative: This is a 44-year-old female who presents to the ED for chief complaint of shortness of breath over the past several weeks. Vitals are normal. Exam is benign. EKG shows sinus rhythm with no acute ischemic findings. Lab work is generally unremarkable, however D-dimer is elevated 2.33 today. CTA chest was ordered, although very low suspicion for PE. Chest x-ray: IMPRESSION: No acute cardiopulmonary process. CTA chest: IMPRESSION: No CT evidence of acute pulmonary embolus. No acute process detected in the chest. Presentation is consistent with pleurisy versus atypical chest pain. Ambulatory O2 test is normal. Patient will be discharged in stable condition. Supportive measures discussed and return precautions given. Patient is understanding and agreeable with plan for discharge with PCP follow-up. <Rio Palacios PA-C - Last Filed: 12/12/24 02:24> Vital Signs Vital Signs: Vital Signs Temperature 97.2 F L 12/11/24 15:40 Pulse Rate 71 12/11/24 15:40 Respiratory Rate 20 12/11/24 15:40 Blood Pressure 150/88 H 12/11/24 15:40 Pulse Oximetry 100 12/11/24 15:40 Temperature 97.2 F L 12/11/24 15:40 Pulse Rate 77 12/11/24 23:57 Respiratory Rate 18 12/11/24 23:57 Blood Pressure 122/83 12/11/24 23:57 Pulse Oximetry 100 12/11/24 23:57 <Meaghan Garcia PA-C - Last Filed: 12/11/24 15:44> Vital Signs Temperature 97.2 F L 12/11/24 15:40 Pulse Rate 71 12/11/24 15:40 Respiratory Rate 20 12/11/24 15:40 Blood Pressure 150/88 H 12/11/24 15:40 Pulse Oximetry 100 12/11/24 15:40 Temperature 97.2 F L 12/11/24 15:40 Pulse Rate 77 12/11/24 23:57 Respiratory Rate 18 12/11/24 23:57 Blood Pressure 122/83 12/11/24 23:57 Pulse Oximetry 100 12/11/24 23:57 <SALOMON Villa Last Filed: 12/12/24 02:24> Lab Data Result diagrams: 12/11/24 19:02 12/11/24 19:02 <Meaghan Garcia PA-C - Last Filed: 12/11/24 15:44> Labs: Lab Results 12/11/24 12/11/24 Range/Units 19:02 22:51 WBC 11.2 H (4.5-10.0) K/mm3 RBC 5.00 (4.2-5.4) M/mm3 Hgb 14.1 (12.0-15.0) g/dL Hct 44.3 (37.0-47.0) % MCV 88.6 (80-100) fl MCH 28.2 (26-34) pg MCHC 31.8 L (32-36) g/dl RDW 14.6 H (11.5-14.5) % Plt Count 232 (150-375) k/mm3 MPV 10.5 H (7.4-10.4) fl Immature Gran % (Auto) 0.4 (0-0.5) % Neut % (Auto) 64.0 (45.5-73.1) % Lymph % (Auto) 26.4 (18.3-44.2) % Houghton % (Auto) 6.4 (2.6-8.5) % Eos % (Auto) 2.4 (0-4.4) % Baso % (Auto) 0.4 (0.2-1.2) % Lymph # (Auto) 2.95 (0.9-3.2) K/mm3 Houghton # (Auto) 0.7 H (0.1-0.6) K/mm3 Eos # (Auto) 0.3 (0-0.3) K/mm3 Baso # (Auto) 0.1 (0.0-0.1) K/mm3 Abs Immat Gran (auto) 0.04 H (0.00-0.031) K/mm3 Absolute Neuts (auto) 7.2 H (1.3-6.7) K/mm3 Absolute Nucleated RBC 0.000 (0.0-0.012) K/mm3 Nucleated RBC % 0.0 (0.0-0.2) % D-Dimer 2.33 H (<0.48) ug/mL Sodium 141 (137-145) mmol/L Potassium 4.2 (3.4-5.0) mmol/L Chloride 107 (98-107) mmol/L Carbon Dioxide 21 L (22-30) mmol/L Anion Gap 13 H (4-12) mmol/L BUN 18 H (7-17) mg/dL Creatinine 0.60 L (0.7-1.0) mg/dL Estim Creat Clear Calc 163 ml/min Estimated GFR > 60 (59 - ) Glucose 92 (65-110) mg/dL Calcium 9.4 (8.4-10.2) mg/dL Magnesium 1.9 (1.6-2.3) mg/dL Total Bilirubin 0.5 (0.2-1.3) mg/dL AST 21 (14-36) U/L ALT 22 (6-35) U/L Alkaline Phosphatase 122 (38-126) U/L Troponin I < 0.012 (0.000-0.034) ng/mL NT-Pro-B Natriuret Pep 41 (19.9-100) pg/mL Total Protein 8.0 (6.3-8.2) g/dL Albumin 4.1 (3.5-5.1) g/dL POC Urine HCG, Qual Negative (Negative) Influenza A (RT-PCR) Negative (Negative) Influenza B (RT-PCR) Negative (Negative) RSV (RT-PCR) Negative (Negative) SARS-CoV-2 RNA (RT-PCR) Negative (Negative) <Meaghan Garcia PA-C - Last Filed: 12/11/24 15:44> Lab Results 12/11/24 12/11/24 Range/Units 19:02 22:51 WBC 11.2 H (4.5-10.0) K/mm3 RBC 5.00 (4.2-5.4) M/mm3 Hgb 14.1 (12.0-15.0) g/dL Hct 44.3 (37.0-47.0) % MCV 88.6 (80-100) fl MCH 28.2 (26-34) pg MCHC 31.8 L (32-36) g/dl RDW 14.6 H (11.5-14.5) % Plt Count 232 (150-375) k/mm3 MPV 10.5 H (7.4-10.4) fl Immature Gran % (Auto) 0.4 (0-0.5) % Neut % (Auto) 64.0 (45.5-73.1) % Lymph % (Auto) 26.4 (18.3-44.2) % Houghton % (Auto) 6.4 (2.6-8.5) % Eos % (Auto) 2.4 (0-4.4) % Baso % (Auto) 0.4 (0.2-1.2) % Lymph # (Auto) 2.95 (0.9-3.2) K/mm3 Houghton # (Auto) 0.7 H (0.1-0.6) K/mm3 Eos # (Auto) 0.3 (0-0.3) K/mm3 Baso # (Auto) 0.1 (0.0-0.1) K/mm3 Abs Immat Gran (auto) 0.04 H (0.00-0.031) K/mm3 Absolute Neuts (auto) 7.2 H (1.3-6.7) K/mm3 Absolute Nucleated RBC 0.000 (0.0-0.012) K/mm3 Nucleated RBC % 0.0 (0.0-0.2) % D-Dimer 2.33 H (<0.48) ug/mL Sodium 141 (137-145) mmol/L Potassium 4.2 (3.4-5.0) mmol/L Chloride 107 (98-107) mmol/L Carbon Dioxide 21 L (22-30) mmol/L Anion Gap 13 H (4-12) mmol/L BUN 18 H (7-17) mg/dL Creatinine 0.60 L (0.7-1.0) mg/dL Estim Creat Clear Calc 163 ml/min Estimated GFR > 60 (59 - ) Glucose 92 (65-110) mg/dL Calcium 9.4 (8.4-10.2) mg/dL Magnesium 1.9 (1.6-2.3) mg/dL Total Bilirubin 0.5 (0.2-1.3) mg/dL AST 21 (14-36) U/L ALT 22 (6-35) U/L Alkaline Phosphatase 122 (38-126) U/L Troponin I < 0.012 (0.000-0.034) ng/mL NT-Pro-B Natriuret Pep 41 (19.9-100) pg/mL Total Protein 8.0 (6.3-8.2) g/dL Albumin 4.1 (3.5-5.1) g/dL POC Urine HCG, Qual Negative (Negative) Influenza A (RT-PCR) Negative (Negative) Influenza B (RT-PCR) Negative (Negative) RSV (RT-PCR) Negative (Negative) SARS-CoV-2 RNA (RT-PCR) Negative (Negative) <SALOMON Villa Last Filed: 12/12/24 02:24> ECG Data EKG #1: ECG completion date: 12/11/24 <SALOMON Villa Last Filed: 12/12/24 02:24> ECG completion time: 23:45 <SALOMON Villa Last Filed: 12/12/24 02:24> Prior ECG tracings: not available for review <SALOMON Villa Last Filed: 12/12/24 02:24> Interpretation: Sinus rhythm Rate 63 Normal QRS Normal QTC No acute ischemic findings <SALOMON Villa Last Filed: 12/12/24 02:24> Discharge Plan Discharge Clinical Impression: Dyspnea <SALOMON Doyle Last Filed: 12/11/24 15:44> Patient Disposition: Home, Self-Care <SALOMON Doyle Last Filed: 12/11/24 15:44> Condition: Stable <SALOMON Doyle Last Filed: 12/11/24 15:44> Instructions: Antibiotic Form <SALOMON Doyle Last Filed: 12/11/24 15:44> Additional Instructions: Your exam and imaging today are reassuring overall. There is very mild dehydration on lab some make sure they stay well hydrated at home. Also be sure to take ibuprofen 600 mg whenever you feel the pain come on. Follow-up with PCP on this issue. If you have any new or worsening symptoms please return to the ER for further evaluation. <SALOMON Doyle Last Filed: 12/11/24 15:44> Patient Language: Spanish <SALOMON Doyle Last Filed: 12/11/24 15:44> Prescriptions: No Action escitalopram oxalate 10 mg tablet 10 mg PO DAILY albuterol sulfate 90 mcg/actuation HFA aerosol inhaler 1 inh inhalation QID PRN (Reason: shortness of breath or wheezing) Qty: 8.5 1RF ibuprofen 800 mg tablet 800 mg PO TID PRN (Reason: pain) Qty: 30 0RF azithromycin [Zithromax Z-Eric] 250 mg tablet See Rx Instructions .ROUTE .COMPLEX Qty: 6 0RF Rx Instructions: take 500 mg today (day 1), then 250 mg for 4 days (days 2-5) <Meaghan Garcia PA-C - Last Filed: 12/11/24 15:44> Follow-up/Referrals: PHYSICIAN NOT ON STAFF,NONSTAFF [Non-Staff] - <Meaghan Garcia PA-C - Last Filed: 12/11/24 15:44> Time of Disposition: 23:44 <Meaghan Garcia PA-C - Last Filed: 12/11/24 15:44> 23:44 <Rio Palacios PA-C - Last Filed: 12/12/24 02:24>
[2024-12-11 19:09] LABS: Basophils Absolute Auto 0.1 K/mm3 (0.0-0.1); Basophils Percent Auto 0.4 % (0.2-1.2); Eosinophils Absolute Auto 0.3 K/mm3 (0-0.3); Eosinophils Percent Auto 2.4 % (0-4.4); Hematocrit 44.3 % (37.0-47.0); Hemoglobin 14.1 g/dL (12.0-15.0); Immature Granulocyte Absolute 0.04 K/mm3 (0.00-0.031); Immature Granulocyte Percent A 0.4 % (0-0.5); Lymphocytes Absolute Auto 2.95 K/mm3 (0.9-3.2); Lymphocytes Percent Auto 26.4 % (18.3-44.2); Mean Corpuscular HGB Conc 31.8 g/dl (32-36); Mean Corpuscular Hemoglobin 28.2 pg (26-34); Mean Corpuscular Volume 88.6 fl (80-100); Mean Platelet Volume 10.5 fl (7.4-10.4); Monocytes Absolute Auto 0.7 K/mm3 (0.1-0.6); Monocytes Percent Auto 6.4 % (2.6-8.5); Neutrophils Absolute Auto 7.2 K/mm3 (1.3-6.7); Platelet Count Result 232 k/mm3 (150-375); Red Cell Distribution Width 14.6 % (11.5-14.5); White Blood Count 11.2 K/mm3 (4.5-10.0)
[2024-12-11 19:18] LABS: Alanine Aminotransferase 22 U/L (6-35); Albumin Level 4.1 g/dL (3.5-5.1); Alkaline Phosphatase 122 U/L (38-126); Anion Gap 13 mmol/L (4-12); Aspartate Amino Transferase 21 U/L (14-36); Bilirubin,Total 0.5 mg/dL (0.2-1.3); Blood Urea Nitrogen 18 mg/dL (7-17); Calcium 9.4 mg/dL (8.4-10.2); Carbon Dioxide 21 mmol/L (22-30); Chloride 107 mmol/L (98-107); Estimated CRCL calculation 163 ml/min; Estimated Glomerular Filt Rate > 60; Glucose 92 mg/dL (65-110); Magnesium 1.9 mg/dL (1.6-2.3); Potassium 4.2 mmol/L (3.4-5.0); Sodium 141 mmol/L (137-145)
[2024-12-11 19:30] LABS: NT Pro B Type Natriuretic Pept 41 pg/mL (19.9-100); Troponin I < 0.012 ng/mL (0.000-0.034)
[2024-12-11 19:40] LABS: D Dimer 2.33 ug/mL (<0.48)
[2024-12-11 19:46] LABS: Influenza A QL RT-PCR Negative (Negative); Influenza B QL RT-PCR Negative (Negative); RSV RNA, RT-PCR Negative (Negative); SARS-CoV-2 RNA PCR Negative (Negative)
[2024-12-11 20:52] VITALS: BP 133/80; PULSE 66; RESP 16; O2SAT 100
--- OUTSIDE RECORDS SUMMARY | 2024-12-11 21:36 | XMS_ITS | Encounter Summary ---
Author Organization [facility] Address [address] [place] [address] Phone Care Team Providers Care Rice Cleaning Machine Tender Name Role Phone Suzanne Calzada MD Primary Care Provider [phone] Jamey Velazquez SOCIAL MEDIA MARKETING MANAGER Unavailable [phone] Jo Gardner DPT Unavailable [phone] Monster Hdez Unavailable Unavailable Catina Albarado NP Primary Care Provider [phone] Magdalena Fajardo MD Primary Care Provider Encounter Details Date Type Department Care Team (Late st Contact Info) Description 03/15/2018 Orders Only [facility] ProviderJeff MD [address] [place] [address] Social History Tobacco Use Types Packs/Day Years Used Date Smoking Tobacco: Never Smokeless Tobacco: Never Alcohol Use Standard Drinks/Week Comments Yes 0 (1 standard drink = 0.6 oz pur e alcohol) Comments No Sex and Gender Information Value Date Recorded Sex Assigned at Not on file Legal Sex Female 8:26 AM FOREIGN EXCHANGE TRADER Gender Identity Not on file Sexual Orientation [...] COVID: Suspected 01/05/2021 01/05/2021 01/06/2021 5:43 AM FOREIGN EXCHANGE TRADER COVID: Suspected 07/05/2021 07/06/2021 07/06/2021 5:21 PM CDT COVID: Suspected 10/25/2021 10/25/2021 10/25/2021 11:07 PM FOREIGN EXCHANGE TRADER COVID: Suspected 11/26/2021 11/27/2021 11/27/2021 10:11 PM FOREIGN EXCHANGE TRADER COVID: Suspected 11/11/2024 11/11/2024 11/11/2024 7:51 PM FOREIGN EXCHANGE TRADER documented as of this encounter Care Teams Rice Cleaning Machine Tender Relationship Specialty Start Date End Date Suzanne Calzada MD [facility] [address] [place] [address] PCP - General 02/10/17 06/08/23 Catina Albarado SOCIAL MEDIA MARKETING MANAGER PCP - General Internal Medicine 06/09/23 11/08/23 Magdalena Fajardo MD [address] [facility] [address] [place] [address] PCP - General Internal Medicine 11/09/23 Jamey Velazquez NP [address] [facility] [phone] [place] [address] Nurse Practitioner Surgery 04/25/18 Jo Gardner DPT [id number] [place] [address] Physical Therapist Physical Therapy 04/25/18 10/28/18 Monster Hdez 04/25/18 documented as of this encounter
--- OUTSIDE RECORDS SUMMARY | 2024-12-11 21:36 | XMS_ITS | Clinical Summary ---
Author Organization [facility] Address [address] [place] [address] Care Team Providers Care Automobile Tester Name Role Phone Jamey Velazquez GROUNDWATER PROGRAMS DIRECTOR Unavailable [phone] Monster Hdez Unavailable Unavailable Magdalena Fajardo MD [...] Psychiatry. Assessment & Plan (01/15/2023 9:51 PM PRESS OPERATOR PRINTING): New worsening problem. PHQ 9 score is [...] 12/14/2020 Assessment & Plan (10/13/2021 11:00 AM PRESS OPERATOR PRINTING): She c/o low back pain which seems [...] 01/06/2021 Assessment & Plan (01/06/2021 10:08 AM PRESS OPERATOR PRINTING): She has sore throat, low grade fever, [...] (08/20/2018): Added automatically from request for surgery [id number] Assessment & Plan (08/25/2022 12:03 PM CDT): [...] medicine. Assessment & Plan (12/06/2018 4:36 PM PRESS OPERATOR PRINTING): Currently compliant with CPAP. Resolved Problems Problem [...] 12/17/2018 Assessment & Plan (12/06/2018 4:36 PM PRESS OPERATOR PRINTING): Obesity is improving. Discussed the patient's BMI. [...] program. She has plans to see a cessation systems outreach specialist and is on low calorie diet. Snoring [...] Department Care Team Description 11/11/2024 10:45 AM PRESS OPERATOR PRINTING Clinical Support [facility]ly [facility] Care at [address] [address] Encounter for screening for COVID-19 (Primary Dx) 11/11/2024 10:44 AM PRESS OPERATOR PRINTING - 11/11/2024 11:59 PM PRESS OPERATOR PRINTING Hospital Encounter [address] [address] Respiratory illness; Fever, unspecified fever cause; Cough, unspecified type; Body aches; Loss of smell; Nonintractable headache, unspecified chronicity pattern, unspecified headache type; Sore throat; Nasal congestion; Runny nose; Chills; Fatigue, unspecified type Discharge Disposition: Discharge to home or self care 10/28/2024 2:20 PM PRESS OPERATOR PRINTING Office Visit [facility] [address] [place] [address] [place] [phone] Aniyah Rivera NP Morbid obesity with BMI of 45.0-49.9, adult (HCC) (Primary Dx) 10/28/[address] [facility] [address] [place] [address] [place] [phone] Magdalena Fajardo MD Prior Auth 09/10/[address] [place] [phone] Wendy Ramsey Encounter for vaccination (Primary Dx) 09/10/[address] [facility] Occupational [address] [place] [phone] Wendy Ramsey from Last 3 Months Immunizations Name Administration Dates Next Due COVID-19 mRNA (AvidRetail) 0.3 m L (30 mcg) vaccine (12 [...] Father Terrell Render Stroke Maternal Grandmother Vanda Richmond Breast cancer Paternal Grandmother Italeine Render Diabetes type II Sister Relation Name Status Comments Father Terrell Render Maternal Grandmother Vanda Richmond Other Paternal Grandmother Italeine Render Sister Social [...] on file Legal Sex Female 8:26 AM PRESS OPERATOR PRINTING Gender Identity Not on file Sexual Orientation Straight 05/13/2020 5: 59 AM CDT 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 Not on file Not on file Obstetrics History Para Term AB IAB SAB Ectopic Multiple Livin g Live Births 0 0 0 0 0 0 0 0 0 0 0 Last Filed Vital Signs Vital Sign Reading Time Taken Comments Blood Pressure 119/81 10/28/2024 2:14 PM PRESS OPERATOR PRINTING Pulse 64 10/28/2024 2:14 PM PRESS OPERATOR PRINTING Temperature 36.4 ??C (97.5 ??F) 10/28/2024 2:14 PM CS T Respiratory Rate 16 10/28/2018 8:10 AM PRESS OPERATOR PRINTING Oxygen Saturation 99% 10/28/2024 2:14 PM PRESS OPERATOR PRINTING Inhaled Oxygen Concentration - - Weight 147.4 kg (325 lb) 10/28/2024 2:14 PM PRESS OPERATOR PRINTING Height 172.7 cm (5' 8 ) 10/28/2024 2:14 PM PRESS OPERATOR PRINTING Body Mass Index 49.42 10/28/2024 2:14 PM PRESS OPERATOR PRINTING Plan of Treatment Health Maintenance Due Date [...] AND COVID-19 PCR Routine 11/11/2024 10:44 AM PRESS OPERATOR PRINTING Respiratory illness Fever, unspecified fever cause Cough, unspecified type Body aches Loss of smell Nonintractable headache, unspecified chronicity pattern, unspecified headache type Sore throat Nasal congestion Runny nose Chills Fatigue, unspecified type SCREENING MAMMOGRAM BILATERAL W RONAK Schedule Routine, Read Routine (OP Routine) 11/16/2023 7:14 AM PRESS OPERATOR PRINTING Screening mammogram, encounter for PAP AND HIGH RISK HPV, REFLEX TO GENOTYPING Routine 03/19/2021 8:27 AM CDT Unsatisfactory cytologic smear of cervix from Last 3 Months or Most Recently Relevant to Health Maintenance Results * Influenza A/B, RSV, and COVID-19 PCR Nasopharyngeal (11/11/2024 10:44 AM PRESS OPERATOR PRINTING) COVID-19 RNA Negative Negative Influenza A RNA Negative Negative [facility] Influenza B RNA Negative Negative [facility] RSV RNA Negative Negative [facility] Comment: Interpretive data: Testing performed by [facility]. This test is performed using the [employer] Xpert Xpress CoV-2/Flu/RSV plus assay. This is a multiplex, real-time reverse transcriptase PCR assay intended for the qualitative detection of nucleic acid from SARS-CoV-2, influenza A, influenza B, and respiratory syncytial virus. This assay has been cleared by the [place] Food and Drug administration. The performance characteristics have been verified by the [facility]. ??Results must be considered in the clinical context, and a negative result does not rule out infection. Interpretive Data last revised 2023 Nasopharyngeal 11/11/2024 10 :44 AM PRESS OPERATOR PRINTING 11/11/2024 6:07 PM PRESS OPERATOR PRINTING Narrative [facility] - 11/11/2024 7:50 PM PRESS OPERATOR PRINTING Bill to C0059 - [facility] Occupational Health Patient is employed by/enrolled at:->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 Fever, cough, shortness of breath)?->Yes Reason for testing?->Symptomatic Is the Patient experiencing symptoms consistent with COVID?->Yes Grant Mendes MD LAB MICROBIOLOGY - GE NERAL ORDERABLES Final Result [facility] [id number] [facility] [place] [address] * Screening Mammogram Bilateral W Ronak (11/16/2023 7:14 AM PRESS OPERATOR PRINTING) Anatomical Region Laterality Modality Breast Bilateral Mammography Narrative 11/17/2023 12:23 PM PRESS OPERATOR PRINTING Mammogram Technique: Bilateral Digital Breast Tomosynthesis, Bilateral C-view 2D Screening mammogram. ??Views obtained: ??bilateral craniocaudal and bilateral mediolateral oblique. ??Computer Aided Detection was performed. Mammogram Findings: The present examination has been compared to a prior imaging study performed at [facility] on 08/16/2021. The breasts are [...] to a prior imaging study performed at [facility] on 08/16/2021. The breasts are [...] CDT 03/19/2021 11:20 AM CDT Narrative PATHOLOGY [facility] - 04/01/2021 3:57 PM CDT EPIC results best viewed via link to PDF [facility] Loraine Pollack Laboratory [place] [address] CYTOPATHOLOGY REPORT FINAL Patient Name: ??RENDER, ALMA E. Gender: ??F : ??1980 (Age: 40) Address: ??[address] [place] [address] ??[id number] Hospital #: ??[id number] Service: ??Laboratory Location: ??[facility] Patient Type: ??[facility] Ref Lab Taken: ??03/19/2021 Received: ??03/19/2021 [...] 69. ??This HPV test was performed at [facility] in [place], [place] utilizing the Gen-Probe Aptima assay. 04/01/2021 [...] unsatisfactory. The HPV test was performed by [facility], [address] [place] [address]. Report Images and scanned documents, if included only viewable in PDF version The performance characteristics of some immunohistochemical stains, in-situ hybridization and fluorescence in-situ hybridization tests and immunophenotyping by flow cytometry cited in this report (if any) were determined by the Surgical Pathology Department at [facility] as part of an ongoing chemistry quality control analyst program and in compliance with federally [...] determined by the Surgical Pathology Department of [facility]. ??It has not been cleared or approved by the [place]. [place]. Food and Drug Administration. Jennifer Kerr NP LAB CYTOLOGY ORDERABLES Fi nal Result PATHOLOGY [facility] 3rd Floor [place], [place] [phone] from Last 3 Months or Most Recently Relevant to Health Maintenance Insurance [facility] H[facility]/PPO Address: [address] [employer] [facility] H[employer]/PPO Address: [address] [address] [place] [address] [facility] [address] [employer] [facility] HMO/PPO Address: [address] [address] [place] [address] [facility] [employer] [facility] [facility] H[employer]/PPO Address: [address] [address] [place] [address] Advance Directives For more information, please contact: [phone] * Full Code (Latest Code Status on File) Date Activated Date Inactivated Comments 10/26/2018 3:51 PM 10/28/2018 6:43 PM Care Teams Automobile Tester Relationship Specialty Start Date End Date Magdalena Fajardo MD [address] [address] PCP - General Internal Medicine 11/09/23 Jamey Velazquez NP [address] [facility] [phone] [place] [address] Nurse Practitioner Surgery 04/25/18 Monster Hdez 04/25/18
--- OUTSIDE RECORDS SUMMARY | 2024-12-11 21:36 | XMS_ITS | Referral Summary ---
Author Organization [facility] Address [address] [place] [address] Care Team Providers Care Prune Washer Name Role Phone Jamey Velazquez WASTEWATER SUPERVISOR Unavailable [phone] Monster Hdez Unavailable Unavailable Magdalena Fajardo MD Primary Care Provider Encounters * This document contains information received from the source organization and may not represent a complete record from that organization. Date Type Department Care Team Description 11/11/2024 10:44 AM [facility] - 11/11/2024 11:59 PM [facility] Hospital Encounter [address] [address] Respiratory illness; Fever, unspecified fever cause; Cough, unspecified type; Body aches; Loss of smell; Nonintractable headache, unspecified chronicity pattern, unspecified headache type; Sore throat; Nasal congestion; Runny nose; Chills; Fatigue, unspecified type Discharge Disposition: Discharge to home or self care 11/11/2024 10:45 AM [facility] Clinical Support [facility] Care at [address] [phone] Encounter for screening for COVID-19 (Primary Dx) 10/28/2024 Telephone [facility] [address] [place] [address] 12th [place] [address] [place] [address] Magdalena Fajardo MD Prior Auth 10/28/2024 2:20 PM [facility] Office Visit [facility] [address] [place] [address] [place] [address] [place] [phone] Aniyah Rivera NP Morbid obesity with BMI of 45.0-49.9, adult (HCC) (Primary Dx) 09/10/2024 Immunization [place] [id number] [facility] 5th [address] [place] [phone] Wendy Ramsey Encounter for vaccination (Primary Dx) 09/10/[address] 5th [address] [place] [phone] Wendy Ramsey from Last 3 Months Allergies [...] Psychiatry. Assessment & Plan (01/15/2023 9:51 PM [facility]): New worsening problem. PHQ 9 score is [...] 12/14/2020 Assessment & Plan (10/13/2021 11:00 AM [facility]): She c/o low back pain which seems [...] 01/06/2021 Assessment & Plan (01/06/2021 10:08 AM [facility]): She has sore throat, low grade fever, [...] (08/20/2018): Added automatically from request for surgery [id number] Assessment & Plan (08/25/2022 12:03 PM CDT): [...] medicine. Assessment & Plan (12/06/2018 4:36 PM [facility]): Currently compliant with CPAP. Resolved Problems Problem [...] 12/17/2018 Assessment & Plan (12/06/2018 4:36 PM [facility]): Obesity is improving. Discussed the patient's BMI. [...] program. She has plans to see a float operator and is on low calorie diet. Snoring [...] Name Administration Dates Next Due COVID-19 mRNA ([employer]) 0.3 m L (30 mcg) vaccine (12 years and up) 09/10/2024 DTP 04/30/1986, 2,1981,09/24 Influenza, Quadrivalent, Spl it, Preservative Free, Intradermal 08/22/2016 Influenza, Trivalent, Cell Culture-based MDCK, Preservative Free, Antibiotic Free, Intramuscular 09/10/2024 Influenza, Trivalent, IM (MDV) 07/05/2014 Influenza, Unspecified 08/17/2022,2020,08/13/2020,07/31 MMR 06/16/1992,01/20/1983 OPV 04/30/1986, 2,1981,09/24 Zoe Majeste SARS-CoV-2 Monovalent Vaccination (12+ Yrs) PURPLE 08/27/2022,09/17/2021,12/04/2020,11/17 [...] on file Legal Sex Female 8:26 AM [facility] Gender Identity Not on file Sexual Orientation Straight 05/13/2020 5: 59 AM CDT 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 Not on file Not on file Last Filed Vital Signs Vital Sign Reading Time Taken Comments Blood Pressure 119/81 10/28/2024 2:14 PM [facility] Pulse 64 10/28/2024 2:14 PM [facility] Temperature 36.4 ??C (97.5 ??F) 10/28/2024 2:14 PM CS T Respiratory Rate 16 10/28/2018 8:10 AM [facility] Oxygen Saturation 99% 10/28/2024 2:14 PM [facility] Inhaled Oxygen Concentration - - Weight 147.4 kg (325 lb) 10/28/2024 2:14 PM [facility] Height 172.7 cm (5' 8 ) 10/28/2024 2:14 PM [facility] Body Mass Index 49.42 10/28/2024 2:14 PM [facility] Plan of Treatment Not on file Procedures Procedure Name Priority Date/Time Associated Diagnosis Comments INFLUENZA A/B, RSV, AND COVID-19 PCR Routine 11/11/2024 10:44 AM [facility] Respiratory illness Fever, unspecified fever cause Cough, unspecified type Body aches Loss of smell Nonintractable headache, unspecified chronicity pattern, unspecified headache type Sore throat Nasal congestion Runny nose Chills Fatigue, unspecified type SCREENING MAMMOGRAM BILATERAL W RONAK Schedule Routine, Read Routine (OP Routine) 11/16/2023 7:14 AM [facility] Screening mammogram, encounter for PAP AND HIGH RISK HPV, REFLEX TO GENOTYPING Routine 03/19/2021 8:27 AM CDT Unsatisfactory cytologic smear of cervix from Last 3 Months or Most Recently Relevant to Health Maintenance Results * Influenza A/B, RSV, and COVID-19 PCR Nasopharyngeal (11/11/2024 10:44 AM [facility]) Pathologist [facility] COVID-19 RNA Negative Negative Influenza A RNA Negative Negative [facility] Influenza B RNA Negative Negative [facility] RSV RNA Negative Negative [facility] Comment: Interpretive data: Testing performed by [facility]. This test is performed using the [employer] Xpert Xpress CoV-2/Flu/RSV plus assay. This is a multiplex, real-time reverse transcriptase PCR assay intended for the qualitative detection of nucleic acid from SARS-CoV-2, influenza A, influenza B, and respiratory syncytial virus. This assay has been cleared by the [place] Food and Drug administration. The performance characteristics have been verified by the [facility]. ??Results must be considered in the clinical context, and a negative result does not rule out infection. 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 Fever, cough, shortness of breath)?->Yes Reason for testing?->Symptomatic Is the Patient experiencing symptoms consistent with COVID?->Yes Grant Mendes MD LAB MICROBIOLOGY - [facility] ORDERABLES Final Result SRINATH [id number] [facility] Department [place] [address] * Screening Mammogram Bilateral W Ronak (11/16/2023 7:14 AM [facility]) Anatomical Region Laterality Modality Breast Bilateral Mammography Narrative 11/17/2023 12:23 PM [facility] Mammogram Technique: Bilateral Digital Breast Tomosynthesis, Bilateral C-view 2D Screening mammogram. ??Views obtained: ??bilateral craniocaudal and bilateral mediolateral oblique. ??Computer Aided Detection was performed. Mammogram Findings: The present examination has been compared to a prior imaging study performed at [facility] on 08/16/2021. The breasts are [...] to a prior imaging study performed at [facility] on 08/16/2021. The breasts are [...] CDT 03/19/2021 11:20 AM CDT Narrative PATHOLOGY [facility] - 04/01/2021 3:57 PM CDT EPIC results best viewed via link to PDF [facility] Loraine Pollack Laboratory [place] [address] CYTOPATHOLOGY REPORT FINAL Patient Name: ??RENDER, ALMA E. Gender: ??F : ??1980 (Age: 40) Address: ??[address] [place] [address] ??[address] Hospital #: ??[id number] Service: ??Laboratory Location: ??[facility] Patient Type: ??[facility] Ref Lab Taken: ??03/19/2021 Received: ??03/19/2021 Accessioned: [...] 69. ??This HPV test was performed at [facility] in [place], [place] utilizing the Gen-Probe Aptima assay. /04/01/2021 [...] unsatisfactory. The HPV test was performed by [facility], [address] [place] [address]. Report Images and scanned documents, if included only viewable in PDF version The performance characteristics of some immunohistochemical stains, in-situ hybridization and fluorescence in-situ hybridization tests and immunophenotyping by flow cytometry cited in this report (if any) were determined by the Surgical Pathology Department at [facility] as part of an ongoing ict quality assurance engineer program and in compliance with federally mandated [...] determined by the Surgical Pathology Department of [facility]. ??It has not been cleared or approved by the [place]. S. Food and Drug Administration. Jennifer Kerr WASTEWATER SUPERVISOR LAB CYTOLOGY ORDERABLES Fi nal Result PATHOLOGY [facility] 3rd Floor [place], [place] [phone] from Last 3 Months or Most Recently Relevant to Health Maintenance Insurance [facility] [place] [id number] [facility] EMPLOYEES [facility] [employer] EM[employer]YE[employer]ES Advance Directives For more information, please contact: [phone] * Full Code (Latest Code Status on File) Date Activated Date Inactivated Comments 10/26/2018 3:51 PM 10/28/2018 6:43 PM Care Teams Prune Washer Relationship Specialty Start Date End Date Magdalena Fajardo MD [address] [facility] [address] [place] [address] PCP - General Internal Medicine 11/09/23 Jamey Velazquez NP [address] [facility] [phone] [place] [address] Nurse Practitioner Surgery 04/25/18 Monster Hdez 04/25/18
[2024-12-11 21:56] VITALS: BP 129/82; PULSE 61; RESP 18; O2SAT 100
[2024-12-11 22:52] LABS: BEDSIDEPREGUCG Negative (Negative)
[2024-12-11 23:57] VITALS: BP 122/83; PULSE 77; RESP 18; O2SAT 100
== END 2024-12-11 23:57 | disposition home or self-care (01) ==
PROVIDERS: Physician Assistant; Emergency Provider Physician Assistant
DX: R06.00 Dyspnea, unspecified (principal); Z20.822 Contact with and (suspected) exposure to COVID-19; F32.A Depression, unspecified; Z79.899 Other long term (current) drug therapy
CPT/HCPCS: 36415; 71046; 71275; 80053; 81025; 83735; 83880; 84484; 85025; 85380; 87637; 93005; 99284; Q9967